=== PATIENT | male | born 1970 | race Caucasian/White ===

== ENCOUNTER 2019-07-15 05:22 | Inpatient (IN) | payer BC ==
[~2019-07-15] VITALS: Ht 185.4 cm; Wt 99.8 kg
[2019-07-15 05:55] LABS: BASOPHILS 0.3 % (0-2); EOSINOPHILS 1.5 % (0-7); HEMATOCRIT 43.7 % (42.0-54.0); HEMOGLOBIN 15.1 g/dL (13.5-17.5); IMMATURE GRANULOCYTES 0.1 % (0-5); LYMPHOCYTES 19.2 % (15-50); MCH 31.4 pg (26.0-34.0); MCHC 34.6 g/dL (31.0-37.0); MCV 90.9 fL (80.0-100.0); MEAN PLATELET VOLUME 10.2 fL (7.4-10.4); NEUTROPHILS 72.9 % (40-80); PLATELET COUNT 188 10x3/uL (130-400); RBC 4.81 10x6/uL (4.20-6.10); WBC 6.8 10x3/uL (4.8-10.8)
[2019-07-15 06:22] LABS: CALC OSMOLALITY 277 mosm/kg (275-300); CALCIUM 9.9 mg/dL (8.5-10.1); CARBON DIOXIDE 27.3 mmol/L (21.0-32.0); CHLORIDE - SERUM 105 mmol/L (98-107); CREATININE - SERUM 1.1 mg/dL (0.6-1.3); GLUCOSE 122 mg/dL (74-106); POTASSIUM - SERUM 3.9 mmol/L (3.5-5.1); SODIUM 138 mmol/L (136-145); UREA NITROGEN 15 mg/dL (7-18); eGFR NON AFRICAN AMERICAN 76 mL/min (90-120)
[2019-07-15 06:31] LABS: ALKALINE PHOSPHATASE 52 U/L (46-116); ALT (SGPT) 32 U/L (10-68); AMYLASE - SERUM 45 U/L (25-115); BILIRUBIN - TOTAL 0.43 mg/dL (0.2-1.3); LIPASE 129 U/L (73-393)
[2019-07-15 06:33] LABS: TROPONIN-I < 0.017 ng/mL (0.000-0.060)
[2019-07-15 06:56] VITALS: BP 138/87
[2019-07-15 07:03] LABS: APPEARANCE CLOUDY (CLEAR); BILIRUBIN NEGATIVE (NEGATIVE); COLOR YELLOW (YELLOW); GLUCOSE NEGATIVE (NEGATIVE); KETONE NEGATIVE (NEGATIVE); NITRITE NEGATIVE (NEGATIVE); PROTEIN NEGATIVE (NEGATIVE); UROBILINOGEN NORMAL (NORMAL)
[2019-07-15 07:04] LABS: AMORPHOUS SEDIMENT >1+ /lpf (NONE SEEN); BACTERIA FEW /hpf (NEGATIVE); EPITHELIAL CELLS NSEEN /hpf (0-5); RED CELLS - URINE 0-5 /hpf (0-5); WHITE CELLS - URINE 0-5 /hpf (NEGATIVE)
--- NOTE | 2019-07-15 08:17 | NUR ---
REPORT GIVEN TO SHYAM FOR ROOM 8834
--- NOTE | 2019-07-15 08:20 | NUR ---
MEFOXIN STOP TIME 0820.
--- NOTE | 2019-07-15 08:50 | NUR ---
MEFOXIN INFUSION COMPLETE AT THIS TIME, PT TRANSPORTED TO FLOOR WITH SWAB CAP ON SALINE LOCK
[2019-07-15 09:52] VITALS: BP 91/58
[2019-07-15 10:01] VITALS: BP 149/96; BMI 29.0
--- NOTE | 2019-07-15 10:34 | NUR ---
FAMILY IN ROOM. CL IN REACH. EMESIS BAGS PROVIDED IN CASE. WCTM
[2019-07-15 12:40] VITALS: BP 138/89
--- NOTE | 2019-07-15 12:52 | NUR ---
MAX LIMIT REACHED ON INSPECTOR FIREARMS DEVICE. SHOWED PATIENT SILENT BUTTON. NO FAMILY AT THIS TIME. CL IN REACH. WCTM
[2019-07-15 16:45] VITALS: BP 151/93
--- NOTE | 2019-07-15 18:07 | NUR ---
FAMILY IN ROOM. REQUESTING A BOLUS BEFORE CHANGE OF SHIFT. SAYS HE IS NOT EATING. CL IN REACH. WCTM
--- NOTE | 2019-07-15 19:25 | NUR ---
A&O X 4, FAMILY AT BEDSIDE. REPORTS ADEQUATE PAIN CONTROL WITH PATROL SUPERVISOR, DENIES NEEDS AT THIS TIME. WILL CONTINUE TO MONITOR.
[2019-07-15 20:00] VITALS: BP 147/94
[2019-07-16 04:00] VITALS: BP 133/83
--- NOTE | 2019-07-16 04:07 | NUR ---
I have reviewed this patient and I concur with the Shift Assessment completed by the Licensed Practical Nurse today this shift.
[2019-07-16 04:39] LABS: BASOPHILS 0.1 % (0-2); EOSINOPHILS 1.5 % (0-7); HEMATOCRIT 39.6 % (42.0-54.0); HEMOGLOBIN 13.3 g/dL (13.5-17.5); IMMATURE GRANULOCYTES 0.3 % (0-5); LYMPHOCYTES 17.8 % (15-50); MCH 31.3 pg (26.0-34.0); MCHC 33.6 g/dL (31.0-37.0); MEAN PLATELET VOLUME 10.5 fL (7.4-10.4); MONOCYTES 11.9 % (2-11); NEUTROPHILS 68.4 % (40-80); PLATELET COUNT 159 10x3/uL (130-400); RBC 4.25 10x6/uL (4.20-6.10); RDW 12.3 % (11.5-14.5); WBC 7.9 10x3/uL (4.8-10.8)
[2019-07-16 04:51] LABS: MCV 93.2 fL (80.0-100.0)
[2019-07-16 04:54] LABS: ALBUMIN 3.2 g/dL (3.4-5.0); ALKALINE PHOSPHATASE 44 U/L (46-116); BILIRUBIN - TOTAL 0.55 mg/dL (0.2-1.3); CALCIUM 7.8 mg/dL (8.5-10.1); CARBON DIOXIDE 26.9 mmol/L (21.0-32.0); CHLORIDE - SERUM 106 mmol/L (98-107); CREATININE - SERUM 0.9 mg/dL (0.6-1.3); GLUCOSE 99 mg/dL (74-106); MAGNESIUM - SERUM 1.6 mg/dL (1.8-2.4); PHOSPHOROUS 3.6 mg/dL (2.5-4.9); POTASSIUM - SERUM 3.7 mmol/L (3.5-5.1); PROTEIN - SERUM 6.4 g/dL (6.4-8.2); SODIUM 140 mmol/L (136-145); eGFR NON AFRICAN AMERICAN > 90 mL/min (90-120)
[2019-07-16 05:09] LABS: ALT (SGPT) 22 U/L (10-68); CALC OSMOLALITY 276 mosm/kg (275-300); UREA NITROGEN 7 mg/dL (7-18)
--- NOTE | 2019-07-16 08:55 | NUR ---
PT ALERT X 4. BREATH SOUNDS CLEAR BILAT. IV TO LEFT HAND, PATENT, DRESSING CDI. PT EATING BREAKFAST. PT INSTRUCTED TO BE NPO AND NO PAIN MEDICATION AFTER BREAKFAST FOR ORDERED SCANS. PT REPORTING NO PAIN AT THIS TIME. BED LOW, CALL LIGHT IN REACH. NO OTHER NEEDS AT THIS TIME.
[2019-07-16 09:48] VITALS: BP 138/89
[2019-07-16 13:23] VITALS: BP 140/84
[2019-07-16 21:19] VITALS: BP 134/78
[2019-07-17] VITALS (10 sets, daily range): BP systolic 107–156; BP diastolic 60–86; Ht 185.4 cm; Wt 99.8 kg
--- NOTE | 2019-07-17 07:05 | NUR ---
OFF UNIT VIA BED TO SURGERY.
--- NOTE | 2019-07-17 10:20 | NUR ---
RETURNED FROM SURGERY. FAMILY AT BEDSIDE. A/O X3. C/O ABDOMINAL PAIN LEVEL 8. WILL MONITOR. MANAGER PULMONARY PUMP PLACED. LUNGS ARE CLEAR BILATERALLY, NO COUGH NOTED. SKIN IS INTACT WITHOUT REDNESS EXCEPT 6 SMALL INSERTION SITES TO ABDOMEN WHICH HAVE DRY INTACT DRESSINGS IN PLACE. IV TO LEFT HAND IS PATENT WITHOUT REDNESS AT INSERTION SITE. DENIES NEEDS.
--- NOTE | 2019-07-17 12:57 | NUR ---
DOING WELL VSS. REGULAR LUNCH TRAY ORDERED. WILL CONTINUE TO MONITOR.
--- NOTE | 2019-07-17 15:00 | NUR ---
AMBULATED IN HALLWAY WITH SBA 250 FEET. ATE MOST OF REGULAR LUNCH TRAY WITHOUT C/O NAUSEA OR PAIN. WILL MONITOR. CALLED DR. GILES RE PO PAIN MEDS. NEW ORDERS RECEIVED.
--- NOTE | 2019-07-17 15:50 | NUR ---
GIVEN ONE HYDROCODONE PO FOR C/O ABDOMINAL PAIN LEVEL 8. WILL MONITOR.
--- NOTE | 2019-07-17 16:44 | NUR ---
AMBULATED 250 FEET AGAIN PER SELF. NO C/O WITH ACTIVITY.
--- NOTE | 2019-07-17 18:36 | NUR ---
PAIN IMPROVED AFTER USE OF CONTAINER CRANE OPERATOR TO CALM ABDOMEN DOWN. WILL MONITOR. UP AMBULATED IN HALLWAY PER SELF. NO CHANGES NOTED.
[2019-07-17] MEDS ORDERED: COLACE100 MG PO (19:09)
[2019-07-17] MEDS ORDERED: HYDROCODON-ACE1 EAC7 PO ×2 (19:09→19:10)
--- NOTE | 2019-07-17 20:13 | NUR ---
PT DISCHARGED. IV TAKEN OUT. DISCHARGE PACKET GIVEN. WRITTEN SCRIPTS GIVEN. PT ALERT AND ORINETED. NO SIGNS OF DISTRESS. PT STABLE UPON DISCHARGE.
--- NOTE | 2019-08-01 08:49 | OP ---
PATIENT NAME: RONAL BRANNON MEDICAL RECORD: [id number] :72 LOCATION:[id number] ADMISSION DATE:07/15/19 SURGEON: SACHIN GILES MD DATE OF OPERATION: 07/17/2019 PREOPERATIVE DIAGNOSIS: Symptomatic gallstones. POSTOPERATIVE DIAGNOSES: 1. Acute cholecystitis. 2. Symptomatic gallstones. 3. Hepatomegaly. PROCEDURES: 1. Laparoscopic cholecystectomy. 2. Intraoperative cholangiography without immediate surgeon interpretation. 3. A 14-gauge core needle liver biopsy. SURGEON: Sachin Giles MD DISTILLATION OPERATOR: None. BLOOD LOSS: Minimal. ANESTHESIA: General. COMPLICATIONS: None. The risks, possible complications and alternatives to the procedure were explained to the patient. He elects to proceed. The discussion specifically included, but were not limited to, bleeding requiring emergency reoperation, infection, intestinal injury, and common bile duct injury. The indication for the liver biopsy was hepatomegaly. OPERATIVE COURSE: The patient was conveyed to the operating room electively on 07/17/2019. General anesthesia was induced by the anesthesia staff. The abdomen was sterilely prepped and draped. A small skin noa was accomplished in the left upper quadrant. Veress needle was inserted through the skin noa into the peritoneal cavity. CO2 insufflation was begun. Once a sufficient pneumoperitoneum had been achieved, a 5-mm trocar was inserted through an incision in the left upper quadrant. Under direct internal vision utilizing a television camera, a 12-mm trocar was inserted through an incision at the umbilicus. Another 5-mm trocar was inserted in the epigastrium. Another 5-mm trocar was inserted far laterally in the right upper quadrant. During insertion of the Veress needle and all trocars, there appeared to have been no injury to the bowels, any intraperitoneal or retroperitoneal structures. Under laparoscopic guidance, I percutaneously accessed the right upper quadrant utilizing a 14-gauge core biopsy device. Cores were obtained over the convexity of the liver. The biopsy sites were made hemostatic with electrocautery. I then advanced a cholangiogram trocar. I punctured the fundus of the gallbladder. I aspirated bile. I then injected dye. Real time cholangiographic images were obtained and these were sent to the radiologist for interpretation. OPERATIVE REPORT [id number] RONAL BRANNON I aspirated bile and removed the cholangiogram trocar. The gallbladder was grasped and directed cephalad. The infundibulum was grasped and retracted laterally. Blunt dissection was begun in the triangle of [place]. One cystic artery and one cystic duct were identified. These were clipped multiply and divided between clips. The gallbladder was then excised from its bed in the liver. It was placed within a bag retrieval device and was withdrawn through the umbilical fascia defect. The 12-mm trocar was placed and the abdomen reinsufflated. I irrigated and aspirated the right upper quadrant. There was no bleeding even at low pressure of 8. The 12-mm trocar was removed. Utilizing the Colby-Thuy suture closure device and 0 Vicryl sutures, I closed the fascia at the umbilicus. All the trocars were removed and the abdomen desufflated. The skin at the umbilicus was closed with interrupted 4-0 Vicryl Rapide sutures. The other skin incision was closed with interrupted intracuticular 3-0 Vicryls. Benzoin and Steri-Strips were applied. The patient was then extubated and conveyed to post-anesthesia care unit where he was in stable condition. TRANSINT:[id number] Voice Confirmation ID: [id number] DOCUMENT ID: [id number] SACHIN GILES MD at 0849 CC: ANALISA MEJIAS DO [id number] DICTATION DATE: 07/31/191709 OUTDOOR STUDIES PROFESSOR: 08/01/19 0108 DIS IN 07/17/19 [facility] [address] [place] [address]
== END 2019-07-17 20:14 | disposition home or self-care (01) | DRG 419 ==
LOC: D.ER 05:22 → D.MS 07:28
PROVIDERS: Emergency Medicine; Family Medicine; ADMIT Surgery; ATTEND Surgery
PROC: 0FB04ZX Excision of Liver, Percutaneous Endoscopic Approach, Diagnostic (ICD-10-PCS; 2019-07-17)
PROC: BF121ZZ Fluoroscopy of Gallbladder using Low Osmolar Contrast (ICD-10-PCS; 2019-07-17)
PROC: 0FT44ZZ Resection of Gallbladder, Percutaneous Endoscopic Approach (ICD-10-PCS; principal; 2019-07-17 07:15)
DX: K80.00 Calculus of gallbladder with acute cholecystitis without obstruction (principal); R16.0 Hepatomegaly, not elsewhere classified; Z72.0 Tobacco use